=== PATIENT | female | born 1960 | race Asian ===

== ENCOUNTER 2017-05-14 06:42 | Day surgery (SDC) | payer OTHER ==
[~2017-05-14] VITALS: Ht 165.1 cm; Wt 79.2 kg
[2017-05-14] MEDS ORDERED: LISINOPRIL (08:01)
[2017-05-14] MEDS ORDERED: SIMVASTATIN (08:01)
[2017-05-14] MEDS ORDERED: ATENOLOL (08:01)
[2017-05-14] MEDS ORDERED: ASPIRIN (08:01)
[2017-05-14 08:02] VITALS: Ht 165.1 cm; Wt 79.2 kg
[2017-05-14 08:48] VITALS: BP 135/78; PULSE 74; RESP 13
[2017-05-14] MEDS ORDERED: FENTAnyl 50 MCG/ML VIAL ONE (09:08)
[2017-05-14] MEDS ORDERED: MIDAZOLAM 1 MG/ML 2 ML INJ ONE (09:08)
--- NOTE | 2017-05-14 09:10 | OPPN ---
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
--- NOTE | 2017-05-14 12:50 | GILP ---
DATE OF PROCEDURE: NAME OF PROCEDURE: Colonoscopy. SURGEON: Magalys Webber MD. PREOPERATIVE DIAGNOSIS: Screening colonoscopy. POSTOPERATIVE DIAGNOSES: 1. Colonoscopy all the way to the cecum. 2. Internal hemorrhoids. 3. No colon neoplasm was identified. INDICATION FOR THE PROCEDURE: Ms. Casie Power is a 56-year-old female patient who was schedule d for screening colonoscopy. The procedure and possible complications were well explained to the patient. The patient understood and consented to the procedure. DESCRIPTION OF PROCEDURE: Under the influence of fentanyl and Versed, the colonoscope was carefully introduced in the rectum and under direct vision, it was advanced all the way to the cecum. FINDINGS: The patient had internal hemorrhoids. No colon neoplasm was identified. The patient tolerated the procedure very well and there was no complication from the procedure. At the end of the procedure, she was awake with stable vital signs and she was discharged home to the formerly [facility] of her family. IMPRESSION: 1. Colonoscopy all the way to the cecum. 2. Internal hemorrhoids. 3. No colon neoplasm was identified. PLAN: Next screening colonoscopy in 10 years. Dictated By: MAGALYS BLAKE/ASHANTI Conf#: [id number] DID#: [id number]
== END 2017-05-14 10:59 | disposition home or self-care (01) ==
LOC: GIL 06:42
PROVIDERS: ATTEND Internal Medicine Gastroenterology
DX: Z12.11 Encounter for screening for malignant neoplasm of colon (principal); K64.8 Other hemorrhoids
CPT/HCPCS: 45378; J2250; J3010; Z7610